=== PATIENT | female | born 1960 | race Caucasian/White ===

== ENCOUNTER 2025-05-13 15:09 | Outpatient (AMB) | payer MEDICARE, SELFPAY ==
--- NOTE | 2025-05-13 15:14 | MHC.OFFVIS ---
Vital Signs 05/13/25 15:46 05/13/25 15:58 Height 5 ft 4 in Weight 195 lb BMI 33.5 BP 164/64 H Blood Pressure Location Lt brachial Position Sitting Pulse 118 H 98 Pulse Source Pulse Oximeter Pulse Oximeter Pulse Oximetry (%) 99 Oxygen Delivery Method Room Air Intake Visit Reasons: colo screen Intake Note: Patient new consult for pre Colonoscopy screening. Patient cc: Pt denies any GI sx or concerns at this time. Bistro Attendant Required: No Accompanied by: Self / Same As Patient Allergies atorvastatin Allergy (Intermediate, Verified 05/13/25 15:46) myalgia and joint pain evolocumab (From Repatha SureClick) Allergy (Intermediate, Verified 05/13/25 15:46) Unknown Sulfa (Sulfonamide Antibiotics) Allergy (Intermediate, Verified 05/13/25 15:46) Unknown sulfamethoxazole (From Bactrim) Allergy (Intermediate, Verified 05/13/25 15:46) Unknown trimethoprim (From Bactrim) Allergy (Intermediate, Verified 05/13/25 15:46) Unknown Medication List - Last Reconciled 05/13/25 by Alicia Gan CNP amlodipine 5 mg PO DAILY aspirin 81 mg PO DAILY benazepril 20 mg PO DAILY calcium carbonate-vitamin D3 500 mg-10 mcg (400 unit) 1 tab PO DAILY chlorthalidone 25 mg PO DAILY glucosamine sulfate 1,000 mg PO DAILY omega 5-sio-xzf-fish oil 1,200 (144-216) mg (Fish Oil) caps PO vitamin B complex 1 tab PO DAILY HPI HPI colo screen: Details: Patient is a 64-year-old female with PMH of obesity, anxiety, depression, hypertension, hyperlipidemia. Mariajose reports bowel movements occur daily with normal consistency; occasional loose stools occur only after consumption of high-fat foods or fried clams, a longstanding and known trigger. She denies constipation, or diarrhea. No unexplained weight loss; reports recent intentional weight loss. Appetite is good and stable. Infrequent heartburn occurs, provoked by bending or physical activity; managed effectively with OTC famotidine. Denies current GI symptoms. No prior GI malignancy. Notable comorbidities include hypercholesterolemia, under care of manager private, and a remote hx of basal cell carcinoma; also has a heart murmur. Reports significant caregiver stress previously; currently uses an herbal supplement for stress management, confirmed to be third-alliance party tested. Family history significant for colorectal polyps (both parents, benign) and gastric cancer (paternal grandfather). No prior concerns for anemia. Patient denies: fever/chills, n/v, appetite changes, regurgitation,dysphasia, unintentional wt loss, ab pain or melena/hematochezia. Social hx: -ETOH use Occasional glass of wine, a few times/month or less -denies recreational drug use -non-smoker - family hx as below -denies significant cardiopulmonary history -tolerated anesthesia in the past without difficulty. [facility] Medical History (Updated 05/14/25 @ 08:18 by Alicia Gan CNP) Mixed hyperlipidemia Acid reflux Family history of colonic polyps Colon cancer screening Surgical History Basal cell carcinoma History of neuroma Hx of one miscarriage Family History Mother Breast CA HTN (hypertension) Hyperlipemia Colon cancer Father Colon cancer HTN (hypertension) Hyperlipemia Alcoholic FHx: cancer of prostate FH: mental illness Sister Breast CA Paternal Aunt Breast CA Paternal Uncle Lung cancer Social History Household Members: Family Alcohol intake: current Alcohol intake frequency: a few times a month Patient Tobacco Use Status: Never used Tobacco Review of Systems Const Reports as per HPI ENT Reports as per HPI Card Reports as per HPI Resp Reports as per HPI GI Reports as per HPI Reports as per HPI Physical Exam Vital Signs: Last Vital Signs Pulse 98 05/13/25 15:58 BP 164/64 H 05/13/25 15:46 Pulse Ox 99 05/13/25 15:46 Oxygen Delivery Method Room Air 05/13/25 15:46 BMI result Body Mass Index 33.5 Const General: healthy appearing, no acute distress and well developed Nutritional Appearance: average body habitus Orientation/consciousness: patient oriented x3 HEENT Head: Yes normal to inspection, Yes normocephalic and Yes atraumatic Face and sinus: Yes normal facial exam Eyes General: appearance normal, both eyes and all related structures Neck Neck: Yes normal visual inspection Resp Effort & Inspection: normal respiratory effort, able to speak in complete sentences, no tracheal deviation and symmetric chest movement Cardio Jugular venous distension: no JVD Neuro General: patient oriented x3 Gait exam (Neuro): Normal gait present Psych Appearance: grossly normal Mental Status: mental status grossly normal Speech and movement: Normal speech and movement present Affect: normal affect Attitude: cooperative Thought process: Normal thought process present Thought content: Normal thought content present Insight: Good insight present (Psych) Judgement: Good judgement present (Psych) Assessment & Plan Assessment & Plan (1) Colon cancer screening: Comment: 02/20/2020 colonoscopy ( [facility], scanned) complete with good prep-normal colon, grade 1 internal hemorrhoids. Recommendations for repeat in 5 years. Code(s): Z12.11 - Encounter for screening for malignant neoplasm of colon Category: Medical Plan: FHx of colorectal polyps (both parents) and gastric CA (paternal grandfather); routine colonoscopy indicated. Additional Testing: - Colonoscopy with polypectomy if indicated - Review prior bloodwork for anemia as available Medication Management: - Hold aspirin 7 days pre-procedure - BP meds to be taken morning of the procedure <4 hrs pre-procedure - Withhold all other meds until after procedure - Prescribed bowel prep: MiraLAX with laxative tablets (as per protocol), instructions given Lifestyle Recommendations: - Follow strict clear liquid diet day prior to procedure - Avoid red, blue, or purple dyes in fluids/Gatorade - Arrange reliable transportation due to sedation Follow-Up: - Post-procedure in-office appt to review endoscopy/colonoscopy findings and management plan (2) Acid reflux: Code(s): K21.9 - Gastro-esophageal reflux disease without esophagitis Category: Medical Qualifiers: Esophagitis presence: esophagitis presence not specified Qualified Code(s): K21.9 - Gastro-esophageal reflux disease without esophagitis Plan: Infrequent heartburn, provoked by bending/physical activity, managed with OTC famotidine; no alarm symptoms Additional Testing: EGD planned to evaluate for upper GI pathology given symptoms and FHx gastric CA Medication Management: Continue OTC famotidine as needed Lifestyle Recommendations: Avoid known triggers (bending, rich/fatty foods); maintain upright posture after eating; avoid late meals Follow-Up: Review EGD results post-procedure; reassess if symptoms increase in frequency or severity (3) Mixed hyperlipidemia: Code(s): E78.2 - Mixed hyperlipidemia Category: Medical Plan: Elevated cholesterol, statin-induced myalgias, failed multiple agents; limited by insurance coverage for PCSK9 inhibitors Additional Testing: None indicated at this visit Medication Management: No immediate changes per GI; managed by cardiology Lifestyle Recommendations: Continued healthy diet; monitor cholesterol as recommended by cardiology Follow-Up: Per cardiology Plan Follow-up after endoscopy or sooner as needed Time: I spent a total of 35 minutes on the date of encounter which includes: Preparing to see the patient (reviewed previous documentation, test results and medical history) Performing a medically appropriate exam and/or evaluation Ordering medications, tests, and procedures Documenting clinical information in the health record Orders: Referrals GI Procedure Notification K21.9 - Gastro-esophageal reflux disease without esophagitis, Z12.11 - Encounter for screening for malignant neoplasm of colon, Z83.71 - Family history of colonic polyps Medications: New polyethylene glycol 3350 (Miralax) per colonoscopy prep instructions 238 grams PO ONCE 238 grams 0RF bisacodyl Take per colonoscopy instructions 20 mg (4 x 5 mg) PO ONCE 4 tabs 0RF Coding Level of Care Code New Pt New Pt Level 3 (06360) Patient Type New Diagnoses Colon cancer screening Z12.11 Gastroesophageal reflux disease, unspecified whether esophagitis present K21.9 Esophagitis presence: esophagitis presence not specified Mixed hyperlipidemia E78.2
[2025-05-13 15:46] VITALS: BP 164/64; PULSE 118; O2SAT 99; BMI 33.5
[2025-05-13 15:58] VITALS: PULSE 98
== END 2025-05-13 16:14 | disposition home or self-care (01) ==
LOC: HO.HGI 15:09
PROVIDERS: PCP Nurse Practitioner Family; Visit Provider Nurse Practitioner Family
DX: Z01.818 Encounter for other preprocedural examination (principal); Z12.11 Encounter for screening for malignant neoplasm of colon; Z83.719 Family history of colon polyps, unspecified; K21.00 Gastro-esophageal reflux disease with esophagitis, without bleeding; E78.2 Mixed hyperlipidemia
CPT/HCPCS: 99203

== ENCOUNTER → 2025-05-13 15:09 | Outpatient (BNVA) | payer MEDICARE, SELFPAY | PROVIDERS: PCP Nurse Practitioner Family; Visit Provider Nurse Practitioner Family | DX: K21.9 Gastro-esophageal reflux disease without esophagitis (principal); Z12.11 Encounter for screening for malignant neoplasm of colon; E78.2 Mixed hyperlipidemia; I10 Essential (primary) hypertension; Z79.82 Long term (current) use of aspirin; Z01.818 Encounter for other preprocedural examination; Z83.719 Family history of colon polyps, unspecified | CPT/HCPCS: 99202 ==